=== PATIENT | female | born 1985 | race Caucasian/White ===

== ENCOUNTER 2019-08-24 17:27 | Outpatient (CLI) | payer MEDICAID ==
[~2019-08-24] VITALS: Ht 154.9 cm; Wt 90.0 kg
[2019-08-24 18:14] LABS: MICROSCOPIC INDICATED
[2019-08-24 18:15] LABS: AMPHETAMINE SCREEN, URINE Negative (Negative); BARBITURATE SCREEN, URINE Negative (Negative); BENZODIAZEPINE SCREEN, URINE Positive (Negative); CANNABINOID SCREEN, URINE Negative (Negative); COCAINE SCREEN, URINE Negative (Negative); METHADONE SCREEN, URINE Negative (Negative); OPIATE SCREEN, URINE Positive (Negative); PROTEIN/CREATININE RATIO,URINE 181 (0-200); TOTAL PROTEIN,URINE RANDOM 30 mg/dL (0-12)
[2019-08-24 18:23] VITALS: BP 130/70
[2019-08-24 18:26] LABS: BASOPHILS % (AUTO) 0 % (0-1); EOSINOPHILS # (AUTO) 0.07 x10^3/uL (0-0.4); EOSINOPHILS % (AUTO) 1 % (1-7); LYMPHOCYTES % (AUTO) 20 % (22-44); MD NO; MEAN CORPUSCULAR HEMOGLOBIN 30.8 pg (27.0-34.8); MEAN CORPUSCULAR HGB CONC 34.1 g/dL (32.4-35.8); MEAN CORPUSCULAR VOLUME 90.4 fL (80-100); MEAN PLATELET VOLUME 7.8 fL (7.4-10.4); MONOCYTES % (AUTO) 7 % (2-9); NEUTROPHILS # (AUTO) 5.43 x10^3/uL (1.8-6.8); NEUTROPHILS % (AUTO) 72 % (42-75); PLATELET COUNT 284 x10^3/uL (130-400); RED BLOOD COUNT 3.53 x10^6/uL (3.82-5.3); RED CELL DISTRIBUTION WIDTH 13.5 % (9.6-15.2)
[2019-08-24 18:42] LABS: ALANINE AMINOTRANSFERASE 13 U/L (12-78); ALBUMIN 2.5 g/dL (3.4-5.0); ANION GAP 6 mmol/L (5-15); CALCIUM 9.1 mg/dL (8.5-10.1); CHLORIDE 107 mmol/L (98-107)
[2019-08-24 18:44] LABS: ALKALINE PHOSPHATASE 94 U/L (45-117); BILIRUBIN,TOTAL 0.3 mg/dL (0.2-1.0); TOTAL PROTEIN 6.1 g/dL (6.4-8.2)
== END 2019-08-24 19:45 | disposition home or self-care (01) ==
LOC: LDOP 17:27 → MERGE 17:27 → LDOP 19:45
PROVIDERS: ATTEND Obstetrics & Gynecology
DX: O26.893 Other specified pregnancy related conditions, third trimester (principal); Z3A.35 35 weeks gestation of pregnancy
CPT/HCPCS: 36415; 59025; 76819; 80053; 80307; 81001; 82570; 84156; 84550; 85025; 99201; G0463

== ENCOUNTER 2019-09-02 05:37 | Inpatient (IN) | payer MEDICAID ==
[~2019-09-02] VITALS: Ht 154.9 cm; Wt 90.9 kg
[2019-09-02] MEDS ORDERED: NEWBORN KIT ONE (05:45)
[2019-09-02] MEDS ORDERED: SODIUM CITRATE/CITRIC ACID 30 ML UDC ONE (05:45)
[2019-09-02] MEDS ORDERED: METOCLOPRAMIDE 5 MG/ML, 2ML ONE (05:45)
[2019-09-02] MEDS ORDERED: LACTATED RINGERS 1,000 ML IVBOLUS ONE ×2 (06:00→17:30)
[2019-09-02] MEDS ORDERED: SODIUM CITRATE/CITRIC ACID 30 ML UDC PO ONE (06:00)
[2019-09-02] MEDS ORDERED: METOCLOPRAMIDE 5 MG/ML, 2ML IV ONE (06:00)
[2019-09-02] MEDS ORDERED: ONDANSETRON 2MG/ML, 2ML IVPush ONE (06:00)
[2019-09-02 06:27] LABS: BASOPHILS # (AUTO) 0.02 x10^3/uL (0-0.1); BASOPHILS % (AUTO) 0 % (0-1); EOSINOPHILS # (AUTO) 0.06 x10^3/uL (0-0.4); EOSINOPHILS % (AUTO) 1 % (1-7); LYMPHOCYTES # (AUTO) 1.23 x10^3/uL (1-3.4); LYMPHOCYTES % (AUTO) 16 % (22-44); MD NO; MEAN CORPUSCULAR HEMOGLOBIN 30.5 pg (27.0-34.8); MEAN CORPUSCULAR HGB CONC 33.6 g/dL (32.4-35.8); MEAN CORPUSCULAR VOLUME 90.9 fL (80-100); MEAN PLATELET VOLUME 7.8 fL (7.4-10.4); MONOCYTES # (AUTO) 0.59 x10^3/uL (0.2-0.8); MONOCYTES % (AUTO) 8 % (2-9); NEUTROPHILS # (AUTO) 6.01 x10^3/uL (1.8-6.8); NEUTROPHILS % (AUTO) 76 % (42-75); PLATELET COUNT 216 x10^3/uL (130-400); RED BLOOD COUNT 3.66 x10^6/uL (3.82-5.3); RED CELL DISTRIBUTION WIDTH 13.5 % (9.6-15.2)
[2019-09-02] MEDS ORDERED: FENTANYL PF 100 MCG/2ML ONE (07:09)
[2019-09-02] MEDS ORDERED: ALPR0.5T7 PO (07:13)
[2019-09-02] MEDS ORDERED: ASPI-496 PO (07:13)
[2019-09-02] MEDS ORDERED: OXYC20TA2 PO (07:13)
[2019-09-02] MEDS ORDERED: PREN-59 PO (07:14)
[2019-09-02] MEDS ORDERED: CEFAZOLIN 1,000 MG ONE ×2 (07:18)
[2019-09-02] MEDS ORDERED: OXYTOCIN 10 UNITS/ML, 1ML ONE ×4 (07:18)
[2019-09-02] MEDS: LACTATED RINGERS 1,000 ML IV SCH ×5 (07:21→23:21)
[2019-09-02] MEDS ORDERED: OXYTOCIN 30U/ 0.9% NaCL 500ML 500 ML ONE (07:28)
[2019-09-02] MEDS ORDERED: ACETAMINOPHEN 325 MG TABLET PO PRN ×2 (07:30→09:00)
[2019-09-02] MEDS ORDERED: CARBOPROST TROMETHAMINE 250 MCG/ML, 1ML IM PRN (07:30)
[2019-09-02] MEDS ORDERED: MISOPROSTOL 200 MCG TABLET PR PRN (07:30)
[2019-09-02] MEDS ORDERED: MORPHINE SULFATE 4 MG/ML, 1ML IVPush PRN (07:30)
[2019-09-02] MEDS ORDERED: METHYLERGONOVINE 0.2 MG/ML IM PRN (07:30)
[2019-09-02] MEDS ORDERED: OXYcodone/APAP 5/325MG TABLET PO PRN (07:30)
[2019-09-02] MEDS ORDERED: ONDANSETRON 2MG/ML, 2ML IV PRN ×2 (07:30→09:00)
[2019-09-02] MEDS ORDERED: MISOPROSTOL 200 MCG TABLET ONE (07:41)
[2019-09-02] MEDS ORDERED: ONDANSETRON 2MG/ML, 2ML ONE ×2 (08:04→10:36)
[2019-09-02] MEDS ORDERED: OXYcodone 5 MG/5 ML ORAL.SOL UDC PO PRN (09:00)
[2019-09-02] MEDS ORDERED: FENTANYL PF 100 MCG/2ML IV PRN (09:00)
[2019-09-02] MEDS ORDERED: HYDROmorphone 2 MG/ML, 1ML IVPush PRN (09:00)
[2019-09-02] MEDS ORDERED: DIPHENHYDRAMINE 50 MG/ML, 1ML IVPush PRN (09:00)
[2019-09-02] MEDS ORDERED: HALOPERIDOL 5 MG/ML IV PRN (09:00)
[2019-09-02] MEDS ORDERED: LABETALOL 5MG/ML, 20ML IV PRN (09:00)
[2019-09-02] MEDS ORDERED: PROMETHAZINE 25 MG/ML, 1ML IV PRN (09:00)
[2019-09-02] MEDS ORDERED: EPHEDRINE 50 MG/ML, 1ML IVPush PRN (09:00)
[2019-09-02] MEDS ORDERED: hydrALAzine 20 MG/ML, 1ML IV PRN (09:00)
[2019-09-02] MEDS ORDERED: DEXAMETHASONE 4 MG/ML, 1ML IV PRN (09:00)
[2019-09-02] MEDS ORDERED: LORazepam 2 MG/ML, 1ML IVPush PRN (09:00)
[2019-09-02] MEDS ORDERED: OXYcodone 5 MG/5 ML ORAL.SOL UDC ONE (09:44)
[2019-09-02] MEDS: OXYTOCIN 30U/ 0.9% NaCL 500ML 500 ML IV SCH ×2 (09:51→17:21)
[2019-09-02 10:28] LABS: AMPHETAMINE SCREEN, URINE Negative (Negative); BARBITURATE SCREEN, URINE Negative (Negative); BENZODIAZEPINE SCREEN, URINE Negative (Negative); CANNABINOID SCREEN, URINE Negative (Negative); COCAINE SCREEN, URINE Negative (Negative); METHADONE SCREEN, URINE Negative (Negative); OPIATE SCREEN, URINE Positive (Negative)
[2019-09-02] MEDS ORDERED: HYDROmorphone 2 MG/ML, 1ML ONE (10:35)
[2019-09-02 11:45] VITALS: BP 133/83
[2019-09-02] MEDS: PRENATAL VIT/IRON/FA 1 EACH TABLET PO SCH (12:39)
[2019-09-02] MEDS: morphine SULFATE 10 MG/ML, 1ML IVPush PRN ×2 (12:40→17:20)
[2019-09-02] MEDS: OXYcodone/APAP 5/325MG TABLET PO PRN ×3 (14:00→22:23)
[2019-09-02 17:07] VITALS: BP 137/87
[2019-09-02 19:15] VITALS: BP 135/85
[2019-09-02] MEDS: SIMETHICONE 80 MG CHEW TAB PO PRN (19:53)
[2019-09-02] MEDS: DOCUSATE 100 MG CAPSULE PO PRN (20:04)
[2019-09-02] MEDS: IBUPROFEN 600 MG TABLET PO PRN (21:58)
[2019-09-02] MEDS ORDERED: OXYcodone/APAP 5/325MG TABLET ONE (22:17)
[2019-09-03 00:11] VITALS: BP 131/84
[2019-09-03] MEDS: morphine SULFATE 10 MG/ML, 1ML IVPush PRN (00:51)
[2019-09-03] MEDS: OXYcodone/APAP 5/325MG TABLET PO PRN ×5 (02:21→21:14)
[2019-09-03] MEDS: OXYTOCIN 30U/ 0.9% NaCL 500ML 500 ML IV SCH ×3 (03:21→23:21)
[2019-09-03] MEDS: LACTATED RINGERS 1,000 ML IV SCH ×6 (03:21→23:21)
[2019-09-03 04:45] VITALS: BP 125/82
[2019-09-03] MEDS: IBUPROFEN 600 MG TABLET PO PRN ×4 (05:01→23:14)
[2019-09-03 08:00] VITALS: BP 142/90
[2019-09-03] MEDS: DOCUSATE 100 MG CAPSULE PO PRN ×2 (08:10→21:14)
[2019-09-03] MEDS: PRENATAL VIT/IRON/FA 1 EACH TABLET PO SCH (08:10)
[2019-09-03 08:21] LABS: BASOPHILS # (AUTO) 0.01 x10^3/uL (0-0.1); BASOPHILS % (AUTO) 0 % (0-1); EOSINOPHILS # (AUTO) 0.11 x10^3/uL (0-0.4); EOSINOPHILS % (AUTO) 1 % (1-7); LYMPHOCYTES # (AUTO) 1.57 x10^3/uL (1-3.4); LYMPHOCYTES % (AUTO) 18 % (22-44); MD NO; MEAN CORPUSCULAR HEMOGLOBIN 30.8 pg (27.0-34.8); MEAN CORPUSCULAR HGB CONC 33.5 g/dL (32.4-35.8); MEAN CORPUSCULAR VOLUME 92.1 fL (80-100); MEAN PLATELET VOLUME 8.2 fL (7.4-10.4); MONOCYTES # (AUTO) 0.65 x10^3/uL (0.2-0.8); MONOCYTES % (AUTO) 7 % (2-9); NEUTROPHILS # (AUTO) 6.54 x10^3/uL (1.8-6.8); NEUTROPHILS % (AUTO) 74 % (42-75); PLATELET COUNT 217 x10^3/uL (130-400); RED BLOOD COUNT 3.25 x10^6/uL (3.82-5.3); RED CELL DISTRIBUTION WIDTH 13.8 % (9.6-15.2)
[2019-09-03 18:36] VITALS: BP_SYST 132; BP_SYST 85; BP_DIAS 85
[2019-09-03] MEDS ORDERED: HYDROmorphone 2MG TABLET PO PRN (19:00)
[2019-09-03] MEDS: HYDROmorphone 2MG TABLET PO PRN ×2 (19:30→23:14)
[2019-09-03 20:00] VITALS: BP 133/86
[2019-09-03] MEDS: SIMETHICONE 80 MG CHEW TAB PO PRN (21:14)
[2019-09-04] MEDS: HYDROmorphone 2MG TABLET PO PRN ×5 (03:32→22:11)
[2019-09-04] MEDS: OXYcodone/APAP 5/325MG TABLET PO PRN ×2 (04:45→09:41)
[2019-09-04] MEDS: IBUPROFEN 600 MG TABLET PO PRN ×3 (06:55→19:41)
[2019-09-04] MEDS: LACTATED RINGERS 1,000 ML IV SCH ×5 (06:59→23:21)
[2019-09-04] MEDS: OXYTOCIN 30U/ 0.9% NaCL 500ML 500 ML IV SCH ×2 (09:21→19:21)
[2019-09-04 09:41] VITALS: BP 135/76
[2019-09-04] MEDS: PRENATAL VIT/IRON/FA 1 EACH TABLET PO SCH (09:41)
[2019-09-04] MEDS: DOCUSATE 100 MG CAPSULE PO PRN ×2 (09:41→19:40)
[2019-09-04] MEDS: OXYcodone/APAP 10/325MG TABLET PO PRN ×2 (14:58→19:41)
[2019-09-04 19:30] VITALS: BP 145/82
[2019-09-05 00:40] VITALS: BP 130/77
[2019-09-05] MEDS: IBUPROFEN 600 MG TABLET PO PRN ×2 (01:37→08:40)
[2019-09-05] MEDS: OXYcodone/APAP 10/325MG TABLET PO PRN ×3 (01:37→12:38)
[2019-09-05] MEDS: HYDROmorphone 2MG TABLET PO PRN (04:42)
[2019-09-05 04:49] VITALS: BP 134/81
[2019-09-05] MEDS: LACTATED RINGERS 1,000 ML IV SCH ×2 (05:21→07:21)
[2019-09-05] MEDS: OXYTOCIN 30U/ 0.9% NaCL 500ML 500 ML IV SCH (05:21)
[2019-09-05 08:35] VITALS: BP_SYST 151; BP_SYST 158; BP_DIAS 91; BP_DIAS 96
[2019-09-05] MEDS: DOCUSATE 100 MG CAPSULE PO PRN (08:40)
[2019-09-05] MEDS: PRENATAL VIT/IRON/FA 1 EACH TABLET PO SCH (08:40)
[2019-09-05] MEDS ORDERED: OXYC-302 PO (10:43)
[2019-09-05] MEDS ORDERED: SENN-52 PO (10:43)
[2019-09-05] MEDS ORDERED: IBUP-1222 PO (10:43)
[2019-09-05] MEDS ORDERED: NIFE30TA2 PO (10:48)
[2019-09-05] MEDS ORDERED: ONDA4TAB7 PO (10:48)
[2019-09-05] MEDS ORDERED: OXYC-307 PO (10:49)
[2019-09-05] MEDS ORDERED: DIPH,PERTUSS(ACELL),TET VAC/PF NC IM-VACC ONE ×2 (11:12→12:00)
[2019-09-05 12:35] VITALS: BP 143/92
== END 2019-09-05 12:30 | disposition home or self-care (01) | DRG 788 ==
LOC: LDIP 05:37 → 2NW 11:34
PROVIDERS: ADMIT Obstetrics & Gynecology; ATTEND Obstetrics & Gynecology
PROC: 10D00Z1 Extraction of Products of Conception, Low, Open Approach (ICD-10-PCS; principal; 2019-09-02)
DX: O10.92 Unspecified pre-existing hypertension complicating childbirth (principal); O11.4 Pre-existing hypertension with pre-eclampsia, complicating childbirth; O26.86 Pruritic urticarial papules and plaques of pregnancy (PUPPP); O34.211 Maternal care for low transverse scar from previous cesarean delivery; O69.81X0 Labor and delivery complicated by cord around neck, without compression, not applicable or unspecified; R21 Rash and other nonspecific skin eruption; Z37.0 Single live birth; Z3A.37 37 weeks gestation of pregnancy; Z90.49 Acquired absence of other specified parts of digestive tract; Z90.721 Acquired absence of ovaries, unilateral
CPT/HCPCS: 36415; 80307; 82803; 85025; 86592; 86762; 86850; 86900; 90715; G0378; J0690; J1170; J2405; J3010; J2270; J2590; J2765; J7120

== ENCOUNTER 2019-09-11 19:07 | Emergency (ER) | payer MEDICAID ==
[~2019-09-11] VITALS: Ht 154.9 cm; Wt 80.2 kg
[~2019-09-11 19:07] MED LIST: ALPR0.5T7 PO; ASPI-496 PO; IBUP-1222 PO; NIFE30TA2 PO; ONDA4TAB7 PO; OXYC-302 PO; OXYC-307 PO; OXYC20TA2 PO; PREN-59 PO; SENN-52 PO
[2019-09-11] MEDS ORDERED: DIPHENHYDRAMINE 50 MG/ML, 1ML IVPush ONE (19:30)
[2019-09-11] MEDS ORDERED: LABETALOL 5MG/ML, 20ML IVPush ONE (19:30)
[2019-09-11] MEDS ORDERED: KETOROLAC 30 MG/1 ML IVPush ONE (19:30)
[2019-09-11] MEDS ORDERED: PROCHLORPERAZINE 5 MG/ML, 2ML IVPush ONE (19:30)
[2019-09-11] MEDS ORDERED: SODIUM CHLORIDE 0.9% 1,000ML IVBOLUS ONE (19:30)
[2019-09-11] MEDS ORDERED: SODIUM CHLORIDE FLUSH 10ML SYR IVF ONE (19:30)
[2019-09-11 19:51] LABS: BASOPHILS # (AUTO) 0.04 x10^3/uL (0-0.1); BASOPHILS % (AUTO) 1 % (0-1); EOSINOPHILS # (AUTO) 0.18 x10^3/uL (0-0.4); EOSINOPHILS % (AUTO) 4 % (1-7); LYMPHOCYTES # (AUTO) 1.38 x10^3/uL (1-3.4); LYMPHOCYTES % (AUTO) 27 % (22-44); MD NO; MEAN CORPUSCULAR HEMOGLOBIN 30.3 pg (27.0-34.8); MEAN CORPUSCULAR VOLUME 91.7 fL (80-100); MEAN PLATELET VOLUME 6.9 fL (7.4-10.4); MONOCYTES # (AUTO) 0.38 x10^3/uL (0.2-0.8); MONOCYTES % (AUTO) 8 % (2-9); NEUTROPHILS # (AUTO) 3.06 x10^3/uL (1.8-6.8); NEUTROPHILS % (AUTO) 61 % (42-75); PLATELET COUNT 518 x10^3/uL (130-400); RED BLOOD COUNT 4.03 x10^6/uL (3.82-5.3); RED CELL DISTRIBUTION WIDTH 13.6 % (9.6-15.2)
[2019-09-11] MEDS ORDERED: KETOROLAC 30 MG/1 ML ONE (19:56)
[2019-09-11] MEDS ORDERED: PROCHLORPERAZINE 5 MG/ML, 2ML ONE (19:56)
[2019-09-11] MEDS ORDERED: DIPHENHYDRAMINE 50 MG/ML, 1ML ONE (19:56)
[2019-09-11] MEDS ORDERED: LABETALOL 5MG/ML, 20ML ONE (19:57)
[2019-09-11 20:04] LABS: ALBUMIN 3.1 g/dL (3.4-5.0); ANION GAP 7 mmol/L (5-15); CALCIUM 8.5 mg/dL (8.5-10.1); CHLORIDE 107 mmol/L (98-107)
--- NOTE | 2019-09-11 20:04 | NUR ---
URINE SAMPLE SENT
[2019-09-11 20:07] LABS: ALANINE AMINOTRANSFERASE 18 U/L (12-78); ALKALINE PHOSPHATASE 102 U/L (45-117); BILIRUBIN,TOTAL 0.4 mg/dL (0.2-1.0); CREATININE 0.92 mg/dL (0.55-1.02); TOTAL PROTEIN 6.9 g/dL (6.4-8.2)
[2019-09-11 20:16] LABS: MICROSCOPIC AUTO
[2019-09-11 20:23] LABS: CULTURE INDICATED? NO
--- NOTE | 2019-09-11 20:36 | NUR ---
PT UP TO RR WITH STEADY GAIT
[2019-09-11 21:19] VITALS: BP 140/81
--- NOTE | 2019-09-11 21:20 | NUR ---
PT RESTING ON GURNEY, MONITORS IN PLACE, SIDERAILS UP X2, FAMILY AT BEDSIDE, CALL LIGHT WITHIN REACH. CHART UP FOR RECHECK
== END 2019-09-11 22:22 | disposition home or self-care (01) ==
LOC: ED 22:00
DX: G43.901 Migraine, unspecified, not intractable, with status migrainosus (principal); G43.C0 Periodic headache syndromes in child or adult, not intractable; I10 Essential (primary) hypertension
CPT/HCPCS: 36415; 80053; 81001; 85025; 96374; 96375; 99284; J0780; J1200; J1885; J7030